=== PATIENT | female | born 1990 | race Caucasian/White ===

== ENCOUNTER → 2016-08-03 | Outpatient (CLI) | payer OTHER ==
--- NOTE | ~2016-08-03 | S ---
[facility] [place] [address] SURGICAL PATH RPT PROCEDURE Name: BART KUMAR Room #: REG [facility].#: [id number] Admission: 08/03/16 Date of : 89 Discharge: Report #: [id number] Path Case #: [id number] PATHOLOGY REPORT COLLECTION DATE: 08/03/2016 RECEIVED DATE: 08/03/2016 SUBMITTING PHYS: Dr. Jaylon Luther OTHER PHYS: Dr. Karen Ricardo SPECIMEN(S) RECEIVED: A.Lt supraclavicular mass * * * * * * * * * * * * FINAL DIAGNOSIS: "Lt supraclavicular mass," image-guided needle biopsy: - Fibroadipose connective tissue with spindle cell proliferation, mixed inflammatory cells, vascular spaces, and extravasated red blood cells. (see comment) COMMENT: Sections show needle core biopsy fragments of fibroadipose connective tissue. There is a localized spindled cell proliferation with hyalinization, mixed inflammation, vascular spaces, and extravasated red blood cells. Histologic considerations include nodular fasciitis, angioleiomyoma/hemangioma and other reactive/inflammatory processes. No malignancy is seen. No lymph node tissue is present. Of note, this is a small portion of a larger lesion and may not be entirely sales training representative. Clinical and radiographic correlation is required. Please see also the fine needle aspirate ([id number]). The current case is co-reviewed with Dr. Coco Haji. (CLW:; d/t: 08/04/16) PATHOLOGIST: Clara Rivera M.D. REPORT ELECTRONICALLY SIGNED BY: Clara Rivera M.D. DATE/TIME: 08/04/2016 16:30 * * * * * * * * * * * * GROSS PATHOLOGY: The specimen is received in formalin labeled "Bart Kumar," and additionally labeled on the requisition as, "neck". Received are multiple segments of pale mcdowell friable soft tissue measuring 0.4 x 0.4 x 0.1 cm in aggregate dimensions. The specimen is filtered and entirely submitted in cassette A1. (CAA; 08/03/2016) [address] [place] [address] SURGICAL PATH RPT PROCEDURE Name: STACY,BART Juju Room #: [facility].#: [id number] Admission: 08/03/16 Date of : 89 Discharge: Report #: [id number] Path Case #: [id number] CLINICAL HISTORY: Left supraclavicular mass INITIAL CPT CODE(S): A; 82454 Professional services performed by [facility] at [address], [place] [address] Technical services performed by [facility] at [address] [place] [address], [facility] [address] [address]. [facility] [address] [address] PHONE: [phone] DIRECTOR: Ignacio W. Parisa, M.D. * * * END OF REPORT * * *
--- NOTE | ~2016-08-03 | CNG ---
[facility] [place] [address] CYTO-NONGYN REPORT PROCEDURE Name: BART KUMAR Room #: REG [facility]#: [id number] Admission: 08/03/16 Date of : 89 Discharge: Report #: [id number] Path Case #: [id number] CYTOPATHOLOGY REPORT COLLECTION DATE: 08/03/2016 RECEIVED DATE: 08/03/2016 SUBMITTING PHYS: Dr. Jaylon Luther OTHER PHYS: Dr. Karen Ricardo CLINICAL HISTORY: Left supraclavicular mass. See surgical report [id number]. SPECIMEN(S) RECEIVED: A.US guided Fine needle aspiration, Left surpaclavicular mass * * * * * * * * * * * * FINAL DIAGNOSIS: A. Left surpaclavicular mass, US guided Fine needle aspiration: - Scattered inflammatory cells, rare macrophages, and elements of blood are all identified. PATHOLOGIST: Coco Haji M.D. REPORT ELECTRONICALLY SIGNED BY: Coco Haji M.D. DATE/TIME: 08/04/2016 12:48 * * * * * * * * * * * * GROSS PATHOLOGY: A. US guided Fine needle aspiration, Left surpaclavicular mass: The specimen is labeled "Bart Kumar" and consists of one fixed slide, one air dried slide. Thirty mL of clear red fluid in CytoLyt from the needle rinse is also submitted and one ThinPrep slide and a cell block were prepared from this material. (clt 08.03.2016) CONSUMER SERVICES ADVISOR(S): SHERRY Harvey([facility]) INITIAL CPT CODE(S): A; 35199, 69796 Professional services performed by [facility] at [facility] [address], [place] [address] Technical services performed by [facility] at [address] [place] [address], [facility] [address], [place] [address]. [facility] [address] [place] [address], [facility] [address] [place] [place] [address] [place] [address] [place] [address] CYTO-NONGYN REPORT PROCEDURE Name: BART KUMAR Room #: REG [facility] M..#: [id number] Admission: 08/03/16 Date of : 89 Discharge: Report #: [id number] Path Case #: [id number] PHONE: [phone] DIRECTOR: Ignacio Mccauley M.D. * * * END OF REPORT * * *
== END | disposition home or self-care (01) ==
LOC: ULTRA 08:36
DX: R22.1 Localized swelling, mass and lump, neck (principal)